=== PATIENT | male | born 1955 | race Caucasian/White ===

== ENCOUNTER → 2021-04-29 08:29 | Outpatient (CLI) | payer OTHER, SELFPAY ==
--- NOTE | 2021-04-29 | DI.MRI.S_ITS ---
PROCEDURE: MR FOOT RT WO CON INDICATIONS: Pain in right foot TECHNIQUE: Noncontrast sagittal T1 spin echo and T2 fast spin echo with fat saturation, long-axis T1 spin echo and T2 fast spin echo with fat saturation, short-axis T1 spin echo and T2 fast spin echo with fat saturation through the forefoot. COMPARISON: None. FINDINGS: Image quality: Excellent. Bones and joints: T2 hyperintense/T1 hypointense signal seen at the base of the 4th metatarsal, which may reflect remote injury. No distinct fracture line is appreciated. The sesamoid bones appear in expected positions, without internal edema. No significant metatarsophalangeal joint degeneration. No intraosseous lesions. Soft tissues: T2 hyperintense signal about the adductor hallucis and lumbricals, which may reflect reactive edema. Visualized flexor and extensor tendons appear intact, without tenosynovitis. Fluid signal within the peroneal longus tendon, compatible with tendinopathy/partial tear. The distal insertions of the peroneus brevis appears intact. T2 hyperintense signal between the 1st and 2nd carpometacarpal articulation, compatible with Lisfranc injury/partial tear. Reticular T2 hyperintense signal in the dorsal soft tissues, compatible with edema. Sagittal images demonstrate no evidence for plantar plate tears. IMPRESSION: 1. Partial tear of the Lisfranc ligament. 2. Dorsal soft tissue swelling. 3. Reactive edema in the asductor hallucis in lumbar cul muscles. 4. Abnormal signal in the 4th metatarsal base, which may reflect remote injury. Consider correlation with point tenderness to exclude an acute process. Dictated by: Ortiz Chao M.D. on 04/29/2021 at 9:59 Approved by: Ortiz Chao M.D. on 04/29/2021 at 10:12
== END ==
PROVIDERS: PCP Family Medicine; Referring Provider Family Medicine; Visit Provider Family Medicine
DX: S93.491A Sprain of other ligament of right ankle, initial encounter (principal); M79.671 Pain in right foot; R79.89 Other specified abnormal findings of blood chemistry
CPT/HCPCS: 73718

== ENCOUNTER → 2021-10-25 07:34 | Outpatient (CLI) | payer OTHER, SELFPAY ==
--- NOTE | 2021-10-25 | DI.MRI.S_ITS ---
PROCEDURE: MR FOOT RT WO CON INDICATIONS: Foot drop, right foot/right foot pain TECHNIQUE: Noncontrast sagittal T1 spin echo and T2 fast spin echo with fat saturation, long-axis T1 spin echo and T2 fast spin echo with fat saturation, short-axis T1 spin echo and T2 fast spin echo with fat saturation through the forefoot. COMPARISON: [facility], MR, MR FOOT RT WO CON, 04/29/2021, 8:47. FINDINGS: Image quality: Excellent. Bones and joints: Subcortical cystic changes and surrounding edema involving 3rd and 4th metatarsal bases adjacent to 3rd and 4th TMT joint more prominent in 4th metatarsal base likely represent changes secondary to osteoarthritis versus old injury. Slow-growing neoplastic process cannot be entirely excluded. No acute fracture or dislocation. Mild midfoot and forefoot joint osteoarthritic changes are seen more prominent at 3rd and 4th TMT joints and 1st MTP joint. No other suspicious bony lesion. No metatarsal stress fracture. Soft tissues: Previously described mild T2 hyperintense signal involving plantar foot muscles has mostly resolved with minimally residual edema. Visualized flexor and extensor tendons appear intact, without tenosynovitis. The distal insertions of the peroneus brevis and longus tendons appear intact. Sprain/low-grade partial-thickness tear involving principal Lisfranc ligament is again seen with mild surrounding fluid. No full-thickness ligament rupture. Mild dorsal soft tissue swelling is seen. No interval intermetatarsal bursal fluid. No discrete ganglion cyst. IMPRESSION: 1. Subcortical cystic changes and surrounding edema involving 3rd and 4th metatarsal bases more prominent involving 4th metatarsal base as above. Finding may represent changes secondary to osteoarthritis versus remote injury particularly in 4th metatarsal base. A slow growing neoplastic process cannot be entirely excluded. Continued radiographic follow-up is recommended. 2. Mild midfoot and forefoot joint osteoarthritis. No metatarsal stress fracture. 3. Interval decrease in the amount of edema within plantar foot muscles suggestive of resolving muscle contusion/strain. 4. Low-grade partial-thickness tear involving Lisfranc ligament not significantly changed from prior study. No ligament rupture. Dictated by: Jordan Doty M.D. on 10/25/2021 at 11:38 Approved by: Jordan Doty M.D. on 10/25/2021 at 16:24
== END ==
PROVIDERS: PCP Family Medicine; Referring Provider Podiatrist Foot & Ankle Surgery; Visit Provider Podiatrist Foot & Ankle Surgery
DX: M19.071 Primary osteoarthritis, right ankle and foot (principal); S93.691A Other sprain of right foot, initial encounter; G12.29 Other motor neuron disease; M21.371 Foot drop, right foot; M79.671 Pain in right foot; M25.571 Pain in right ankle and joints of right foot; G71.8 Other primary disorders of muscles; R60.0 Localized edema
CPT/HCPCS: 73718

== ENCOUNTER → 2021-11-01 09:56 | Outpatient (CLI) | payer OTHER, SELFPAY ==
--- NOTE | 2021-11-01 | DI.MRI.S_ITS ---
PROCEDURE: MR ANKLE RT WO CON INDICATIONS: PAIN IN RIGHT ANKLE AND JOINTS OF RIGHT FOOT TECHNIQUE: Noncontrast sagittal T1 spin echo and T2 fast spin echo with fat saturation, axial proton density fast spin echo and T2 fast spin echo with fat saturation, coronal T1 spin echo and T2 fast spin echo with fat saturation through the ankle/hindfoot. COMPARISON: [facility], MR, MR FOOT RT WO CON, 10/25/2021, 7:51. FINDINGS: Image quality: Excellent. Bones and joints: A small chronic osteochondral lesion is seen at the lateral talar dome measuring approximately the 5 x 2 x 7 mm with subchondral edema and overlying articular cartilage loss. The subchondral plate appears to be intact. Degenerative changes are seen at the posterior subtalar facet with subchondral edema. Varus alignment of the hindfoot is noted. Cystic changes are again seen at the 4th metatarsal base. A mildly edematous os trigonum is present. Degenerative changes are seen in the mortise joint with anterior osteophyte formation that could contribute to anterior osseous impingement. Medial structures: The deep and superficial layers of the deltoid ligament appear intact. The spring ligament components are intact. Small amount of fluid is seen surrounding the posterior tibialis tendon, consistent with tenosynovitis. The flexor digitorum longus and flexor hallucis longus tendons are intact. There is severe fatty infiltration of the distal flexor hallucis longus muscle. The posterior tibial neurovascular bundle appears normal within the tarsal tunnel, without extrinsic mass effect. Lateral structures: Thickening of the anterior tibial fibular ligament is most likely secondary to a remote prior sprain. The posterior tibiofibular ligament is intact. There is chronic complete tearing of the anterior talofibular ligament. The calcaneofibular ligament appears markedly attenuated, likely secondary to prior high-grade or complete tearing. The posterior talofibular ligament appears remain in continuity. Fluid is seen surrounding the peroneus brevis and longus tendons, which are mildly thickened. There is mild partial effacement of the fat in the sinus tarsi. Anterior structures: The tibialis anterior, extensor hallucis longus, and extensor digitorum longus tendons appear intact. The dorsal talonavicular ligament appears intact. Posterior and plantar structures: There is mild thickening the Achilles tendon, consistent with tendinosis. Mild thickening of the proximal plantar fascia is seen without surrounding edema. No abductor digiti quinti muscle atrophy to suggest Wheeler neuropathy. IMPRESSION: 1. Moderate peroneus brevis and longus tendinosis and tenosynovitis. 2. Chronic complete tearing of the anterior talofibular ligament. Chronic high-grade and likely complete tearing of the calcaneofibular ligament. 3. Chronic low-grade sprain of the anterior tibial fibular ligament. 4. Mild distal posterior tibialis tendinosis. 5. Small chronic osteochondral lesion at the lateral talar dome with subchondral edema. No loose osteochondral fragment. 6. Moderate degenerative changes at the posterior subtalar facet with subchondral edema. Adjacent mild edematous os trigonum is seen, which can be seen in the setting of posterior osseous impingement. 7. Mild degenerative changes at the mortise joint with marginal osteophyte formation. 8. Mild Achilles tendinosis. Mild chronic proximal plantar fasciitis. Dictated by: Caden Lizarraga M.D. on 11/01/2021 at 12:28 Approved by: Caden Lizarraga M.D. on 11/01/2021 at 12:46
== END ==
PROVIDERS: PCP Family Medicine; Referring Provider Podiatrist Foot & Ankle Surgery; Visit Provider Podiatrist Foot & Ankle Surgery
DX: S93.491A Sprain of other ligament of right ankle, initial encounter (principal); M65.871 Other synovitis and tenosynovitis, right ankle and foot; M72.2 Plantar fascial fibromatosis; M25.571 Pain in right ankle and joints of right foot; M21.371 Foot drop, right foot; M79.671 Pain in right foot; G71.8 Other primary disorders of muscles; G12.29 Other motor neuron disease
CPT/HCPCS: 73721

== ENCOUNTER → 2021-12-10 09:50 | Outpatient (CLI) | payer OTHER, SELFPAY ==
--- NOTE | 2021-12-10 10:13 | DI.CT.S_ITS ---
PROCEDURE: CT LE RT WO CON INDICATIONS: Other motor neuron disease TECHNIQUE: Noncontrast 1-mm axial sections acquired from the distal femoral shaft to the bottom of foot, with coronal and sagittal reformats.. COMPARISON: [facility], CR, XR ANKLE 3+ VIEWS RIGHT, 04/10/2021, 11:06. [facility], MR, MR FOOT RT WO CON, 10/25/2021, 7:51. [facility], MR, MR ANKLE RT WO CON, 11/01/2021, 10:12. FINDINGS: Image quality: Excellent. Bones: Alignment of right lower leg is anatomic. No acute fracture or dislocation. Mild tricompartmental osteoarthritis in right knee is seen more prominent in medial femoral tibial compartment. Moderate tibiotalar and subtalar joint osteoarthritic changes are seen with significant joint space narrowing, subchondral sclerosis and prominent marginal osteophyte formation. Mild to moderate osteoarthritic changes are noted throughout midfoot and forefoot joints. Prominent subcortical cystic changes are noted involving plantar aspect of 4th metatarsal base. No acute fracture or dislocation. No suspicious bony lesion. MR finding of small osteochondral injuries involving lateral talar dome is again seen and unchanged. Soft tissues: There is small to moderate amount of tibiotalar joint effusion, no gross loose bodies. No abnormal soft tissue calcifications are seen. Os trigonum is noted. No gross full-thickness ankle tendon rupture. IMPRESSION: 1. Osteoarthritic changes throughout visualized right lower extremity and right foot more prominent at tibiotalar joint and subtalar joint also seen on previous MR study. Small osteochondral lesion involving lateral talar dome. 2. No acute fracture or dislocation. No suspicious intraosseous lesion. 3. Moderate joint effusion, no gross loose body. No abnormal soft tissue calcifications. Dictated by: Jordan Doty M.D. on 12/10/2021 at 12:21 Approved by: Jordan Doty M.D. on 12/10/2021 at 12:25
== END ==
PROVIDERS: PCP Family Medicine; Referring Provider Podiatrist Foot & Ankle Surgery; Visit Provider Podiatrist Foot & Ankle Surgery
DX: G12.29 Other motor neuron disease (principal); G71.8 Other primary disorders of muscles; M25.471 Effusion, right ankle; M21.371 Foot drop, right foot; M25.571 Pain in right ankle and joints of right foot; M79.671 Pain in right foot
CPT/HCPCS: 73700